=== PATIENT | male | born 1950 | race Caucasian/White ===

== ENCOUNTER 2019-05-03 11:15 | Emergency (ER) | payer MEDICARE ==
[~2019-05-03] VITALS: Ht 175.3 cm; Wt 90.0 kg
[2019-05-03 13:19] VITALS: BP 182/94
== END 2019-05-03 13:11 | disposition home or self-care (01) ==
LOC: ER 11:15
DX: I82.812 Embolism and thrombosis of superficial veins of left lower extremity (principal)
CPT/HCPCS: 93971; 99284

== ENCOUNTER 2019-10-04 16:02 | Emergency (ER) | payer MEDICARE ==
[~2019-10-04] VITALS: Ht 175.3 cm; Wt 80.0 kg
[~2019-10-04 16:02] MED LIST: BENZ-16 PO
[2019-10-04 16:20] VITALS: BP 159/82
[2019-10-04] MEDS ORDERED: LORazepam 1 MG tablet PO ONE (17:20)
== END 2019-10-04 18:32 | disposition home or self-care (01) ==
LOC: ER 16:02
DX: S19.9XXA Unspecified injury of neck, initial encounter (principal); M54.2 Cervicalgia; Z79.899 Other long term (current) drug therapy; V63.9XXA Unspecified occupant of heavy transport vehicle injured in collision with car, pick-up truck or van in traffic accident, initial encounter; Y93.89 Activity, other specified; Y92.89 Other specified places as the place of occurrence of the external cause; Y99.8 Other external cause status
CPT/HCPCS: 70450; 72125; 99285

== ENCOUNTER 2020-10-01 09:53 | Emergency (ER) | payer MEDICARE ==
[~2020-10-01] VITALS: Ht 175.3 cm; Wt 85.0 kg
[2020-10-01 11:39] VITALS: BP 149/92
== END 2020-10-01 19:24 | disposition left against medical advice (07) ==
LOC: ER 09:54
DX: J00 Acute nasopharyngitis [common cold] (principal); R05 Cough; R09.89 Other specified symptoms and signs involving the circulatory and respiratory systems; Z53.21 Procedure and treatment not carried out due to patient leaving prior to being seen by health care provider
CPT/HCPCS: 71045